=== PATIENT | male | born 1970 | race African-American/Black ===

== ENCOUNTER → 2017-08-07 | Outpatient (CLI) | payer BC ==
[2017-08-07 23:48] LABS: BASOPHILS % 0.5 % (0.0-2.0); EOSINOPHILS % 3.9 % (0.0-5.0); HEMATOCRIT. 40.5 % (42.0-52.0); HEMOGLOBIN. 13.5 g/dL (14.0-18.0); LYMPHOCYTES % 44.1 % (20.0-50.0); MEAN CORPUSCULAR HEMOGLOBIN 26.8 pg (28.0-32.0); MEAN PLATELET VOLUME 9.6 fl (7.4-10.4); MONOCYTES % 8.5 % (2.0-8.0); PLATELET 189 x1000/uL (130-400); RED BLOOD CELL COUNT 5.06 mill/uL (4.7-6.1); RED CELL DISTRIBUTION WIDTH 15.3 % (11.6-14.6)
[2017-08-08 00:24] LABS: CARBON DIOXIDE 32 mEq/L (21-32); CHLORIDE 103 mEq/L (98-107); HDL CHOLESTEROL 37 mg/dL (40-59); LDL CHOLESTEROL 98 mg/dL (5-100); T4 FREE 0.85 ng/dL (0.76-1.46); TOTAL IRON BINDING CAPACITY 365 ug/dL (250-450)
[2017-08-08 08:07] LABS: FOLIC ACID (FOLATE) SERUM 14.2 ng/mL (>5.38)
== END | disposition home or self-care (01) ==
LOC: LAB 21:54
PROVIDERS: ATTEND Family Medicine Adult Medicine
DX: Z00.01 Encounter for general adult medical examination with abnormal findings (principal); I10 Essential (primary) hypertension
CPT/HCPCS: 36415; 80053; 80061; 82306; 82607; 82728; 82746; 83036; 83540; 83550; 84439; 84443; 84481; 85025

== ENCOUNTER → 2018-10-07 | Outpatient (CLI) | payer BC ==
[2018-10-07 21:48] LABS: BASOPHILS % 0.5 % (0.0-2.0); EOSINOPHILS % 5.3 % (0.0-5.0); HEMATOCRIT. 41.2 % (42.0-52.0); HEMOGLOBIN. 13.7 g/dL (14.0-18.0); LYMPHOCYTES % 42.1 % (20.0-50.0); MEAN CORPUSCULAR HEMOGLOBIN 26.9 pg (28.0-32.0); MEAN CORPUSCULAR VOLUME 80.6 fL (80.0-94.0); MEAN PLATELET VOLUME 10.2 fl (7.4-10.4); MONOCYTES % 7.3 % (2.0-8.0); NEUTROPHILS % 44.8 % (40.0-76.0); PLATELET 226 x1000/uL (130-400); RED BLOOD CELL COUNT 5.11 mill/uL (4.7-6.1); RED CELL DISTRIBUTION WIDTH 14.8 % (11.6-14.6)
[2018-10-07 21:55] LABS: CHLORIDE 100 mEq/L (98-107)
[2018-10-07 22:04] LABS: LDL CHOLESTEROL 93 mg/dL (5-100)
[2018-10-07 22:05] LABS: HDL CHOLESTEROL 32 mg/dL (40-59); TOTAL IRON BINDING CAPACITY 329 ug/dL (250-450)
[2018-10-07 22:08] LABS: T4 FREE 0.84 ng/dL (0.76-1.46)
[2018-10-07 23:02] LABS: FOLIC ACID (FOLATE) SERUM 7.9 ng/mL (>5.38)
== END | disposition home or self-care (01) ==
LOC: EDSTATUS 08:17 → LAB 18:48 → ER 18:48
PROVIDERS: ATTEND Emergency Medicine
DX: E11.8 Type 2 diabetes mellitus with unspecified complications (principal); E07.9 Disorder of thyroid, unspecified; E78.5 Hyperlipidemia, unspecified
CPT/HCPCS: 36415; 80061; 82306; 82607; 82728; 82746; 83036; 83540; 83550; 84439; 84443; 84481

== ENCOUNTER → 2019-04-08 | Outpatient (CLI) | payer BC ==
[2019-04-08 20:46] LABS: CHLORIDE 102 mEq/L (98-107)
[2019-04-08 20:47] LABS: BASOPHILS % 0.6 % (0.0-2.0); HEMATOCRIT. 39.7 % (42.0-52.0); HEMOGLOBIN. 13.3 g/dL (14.0-18.0); LYMPHOCYTES % 43.2 % (20.0-50.0); MEAN CORPUSCULAR HEMOGLOBIN 26.7 pg (28.0-32.0); MEAN CORPUSCULAR VOLUME 79.6 fL (80.0-94.0); MEAN PLATELET VOLUME 10.2 fl (7.4-10.4); NEUTROPHILS % 43.2 % (40.0-76.0); PLATELET 196 x1000/uL (130-400); RED BLOOD CELL COUNT 4.98 mill/uL (4.7-6.1); RED CELL DISTRIBUTION WIDTH 15.3 % (11.6-14.6)
[2019-04-08 20:54] LABS: LDL CHOLESTEROL 106 mg/dL (5-100)
[2019-04-08 20:55] LABS: HDL CHOLESTEROL 33 mg/dL (40-59); TOTAL IRON BINDING CAPACITY 344 ug/dL (250-450)
[2019-04-08 20:57] LABS: T4 FREE 0.83 ng/dL (0.76-1.46)
[2019-04-08 21:11] LABS: FOLIC ACID (FOLATE) SERUM 14.2 ng/mL (>5.38)
[2019-04-08 22:31] LABS: PROSTRATE SPECIFIC AG TOTAL 0.18 ng/mL (0.0-4.0)
== END | disposition home or self-care (01) ==
LOC: LAB 20:01
PROVIDERS: ATTEND Family Medicine Adult Medicine
DX: D64.9 Anemia, unspecified (principal); I10 Essential (primary) hypertension; E11.8 Type 2 diabetes mellitus with unspecified complications
CPT/HCPCS: 36415; 80061; 82306; 82607; 82728; 82746; 83036; 83540; 83550; 84153; 84439; 84443; 84481; G0103

== ENCOUNTER → 2020-03-25 | Outpatient (CLI) | payer BC ==
[2020-03-25 03:06] LABS: CHLORIDE 100 mEq/L (98-107)
[2020-03-25 03:10] LABS: BASOPHILS % 0.6 % (0.0-2.0); EOSINOPHILS % 4.5 % (0.0-5.0); LYMPHOCYTES % 44.7 % (20.0-50.0); MEAN CORPUSCULAR HEMOGLOBIN 27.6 pg (28.0-32.0); MEAN CORPUSCULAR VOLUME 80.8 fL (80.0-94.0); MEAN PLATELET VOLUME 10.3 fl (7.4-10.4); MONOCYTES % 7.3 % (2.0-8.0); NEUTROPHILS % 42.9 % (40.0-76.0); PLATELET 177 x1000/uL (130-400); RED BLOOD CELL COUNT 5.07 mill/uL (4.7-6.1); RED CELL DISTRIBUTION WIDTH 15.3 % (11.6-14.6)
[2020-03-25 03:12] LABS: LDL CHOLESTEROL 116 mg/dL (5-100)
[2020-03-25 03:13] LABS: HDL CHOLESTEROL 32 mg/dL (40-59)
[2020-03-25 03:15] LABS: TOTAL IRON BINDING CAPACITY 342 ug/dL (250-450)
[2020-03-25 03:18] LABS: T4 FREE 0.93 ng/dL (0.76-1.46)
[2020-03-25 03:26] LABS: PROSTRATE SPECIFIC AG TOTAL 0.21 ng/mL (0.0-4.0)
[2020-03-25 03:29] LABS: FOLIC ACID (FOLATE) SERUM 11.4 ng/mL (>5.38)
== END | disposition home or self-care (01) ==
LOC: LAB 02:12
PROVIDERS: ATTEND Family Medicine Adult Medicine
DX: I50.9 Heart failure, unspecified (principal); D64.9 Anemia, unspecified; E11.8 Type 2 diabetes mellitus with unspecified complications
CPT/HCPCS: 36415; 80053; 80061; 82607; 82652; 82728; 82746; 83036; 83540; 83550; 84153; 84439; 84443; 84481; 85025; G0103

== ENCOUNTER → 2021-06-01 | Outpatient (CLI) | payer BC ==
[2021-06-01 08:31] LABS: BASOPHILS % 0.5 % (0.0-2.0); EOSINOPHILS % 6.4 % (0.0-5.0); HEMATOCRIT. 40.4 % (42.0-52.0); HEMOGLOBIN. 13.4 g/dL (14.0-18.0); LYMPHOCYTES % 35.7 % (20.0-50.0); MEAN CORPUSCULAR HEMOGLOBIN 26.8 pg (28.0-32.0); MEAN PLATELET VOLUME 10.3 fl (7.4-10.4); MONOCYTES % 8.4 % (2.0-8.0); PLATELET 198 x1000/uL (130-400); RED BLOOD CELL COUNT 4.99 mill/uL (4.7-6.1)
[2021-06-01 08:48] LABS: CHLORIDE 104 mEq/L (98-107)
[2021-06-01 08:54] LABS: LDL CHOLESTEROL 121 mg/dL (5-100)
[2021-06-01 08:55] LABS: HDL CHOLESTEROL 38 mg/dL (40-59); TOTAL IRON BINDING CAPACITY 355 ug/dL (250-450)
[2021-06-01 09:14] LABS: FOLIC ACID (FOLATE) SERUM 14.8 ng/mL (>5.38)
[2021-06-01 11:35] LABS: PROSTRATE SPECIFIC AG TOTAL 0.19 ng/mL (0.0-4.0)
== END | disposition home or self-care (01) ==
LOC: LAB 07:49
PROVIDERS: ATTEND Family Medicine Adult Medicine
DX: Z00.00 Encounter for general adult medical examination without abnormal findings (principal); I10 Essential (primary) hypertension; E11.8 Type 2 diabetes mellitus with unspecified complications
CPT/HCPCS: 36415; 80053; 80061; 82306; 82607; 82728; 82746; 83036; 83540; 83550; 84153; 84439; 84443; 84481; 85025; G0103

== ENCOUNTER → 2022-12-14 | Outpatient (CLI) | payer BC ==
[2022-12-14 08:20] LABS: BASOPHILS % 0.9 % (0.0-2.0); EOSINOPHILS % 7.1 % (0.0-5.0); HEMATOCRIT. 39.2 % (42.0-52.0); HEMOGLOBIN. 13.1 g/dL (14.0-18.0); LYMPHOCYTES % 37.3 % (20.0-50.0); MEAN PLATELET VOLUME 9.9 fl (7.4-10.4); NEUTROPHILS % 45.7 % (40.0-76.0); PLATELET 209 x1000/uL (130-400); RED BLOOD CELL COUNT 4.85 mill/uL (4.7-6.1); RED CELL DISTRIBUTION WIDTH 15.2 % (11.6-14.6)
[2022-12-14 09:18] LABS: CHLORIDE 102 mEq/L (98-107); HDL CHOLESTEROL 39 mg/dL (40-59); LDL CHOLESTEROL 128 mg/dL (5-100)
[2022-12-14 09:32] LABS: T4 FREE 0.97 ng/dL (0.76-1.46); TOTAL IRON BINDING CAPACITY 367 ug/dL (250-450)
[2022-12-14 11:04] LABS: VITAMIN B12 SERUM 893 pg/mL (211-911)
[2022-12-14 15:03] LABS: FERRITIN 87 ng/mL (22-322)
== END | disposition home or self-care (01) ==
LOC: LAB 07:50
PROVIDERS: ATTEND Family Medicine Adult Medicine
DX: I47.1 Supraventricular tachycardia (principal); I10 Essential (primary) hypertension; D50.9 Iron deficiency anemia, unspecified; E11.8 Type 2 diabetes mellitus with unspecified complications
CPT/HCPCS: 36415; 80053; 80061; 82306; 82607; 82728; 82746; 83036; 83540; 83550; 84153; 84439; 84443; 84481; 85025; 85651; G0103